=== PATIENT | female | born 1955 | race Caucasian/White ===

== ENCOUNTER 2017-10-03 09:04 | Emergency (ER) | payer BC ==
[2017-10-03 09:12] VITALS: BMI 25.0
--- NOTE | 2017-10-03 09:49 | PDOC ---
History of Present Illness - General Chief Complaint: Chest Pain Stated Complaint: CHEST PAIN Time Seen by Provider: 10/03/17 09:46 - History of Present Illness Initial Comments: 10/03/17 09:50 62 yo F with h/o hypothyoidism, seizure disorder, and asthma who presents with chest pain. Patient reports sharp, right sided chest pain with radiation to sternum beginning at approximately 0400 AM, waking her from her sleep. Pain was pleuritic worsening with deep inhalation and non positional. Pain started to subside at 0600 AM with increased severity 1 hour [employer] when driving to work. Pain now slightly improved at bedside. Reports episodic palpations with no acute exacerbation. Also endorsed 2 weeks of lightheadedness, but currently asymptomatic. Denies F/C, N/V, SOB, jaw /neck pain, cough, hemoptysis, leg swelling, ext sensory changes, weakness, abdominal pain, constipation, diarrhea , urinary complaints. Denies Tobacco use. Denies h/o PE/DVT. No recent traveling., or calf pain/tenderness/swelling. Denies surgery or trauma within past 6 weeks. Denies h/o malignancy. Denies OCP use or hormone therapy. Denies h /o CAD/LA, stent placement, CABG, or stress testing. Past History - Past Medical History Allergies/Adverse Reactions: Allergies Allergy/AdvReac Type Severity Reaction Status Date / Time morphine AdvReac Mild Nausea Verified 10/03/17 09:08 Home Medications: Ambulatory Orders Azithromycin 250 mg PO ONCE #5 tablet MDD 1 tab 10/03/17 Levothyroxine 150 mg PO DAILY 10/03/17 COPD: No Seizures: Yes (HYPO) Thyroid Disease: Yes - Surgical History Cholecystectomy: Yes - Immunization History Immunization Up to Date: Yes - Suicide/Smoking/Psychosocial Hx Smoking Status: No Smoking History: Never smoked Have you smoked in the past 12 months: No Number of Cigarettes Smoked Daily: 0 Information on smoking cessation initiated: No Hx Alcohol Use: No Drug/Substance Use Hx: No Substance Use Type: None Review of Systems - Review of Systems Comments:: 10/03/17 09:48 GENERAL/CONSTITUTIONAL: No fever or chills. No weakness. HEAD, EYES, EARS, NOSE AND THROAT: No change in vision. No ear pain or discharge. No sore throat.- CARDIOVASCULAR: No shortness of breath RESPIRATORY:+ Chest pain. No cough, wheezing, or hemoptysis. GASTROINTESTINAL: No nausea, vomiting, diarrhea or constipation. GENITOURINARY: No dysuria, frequency, or change in urination. MUSCULOSKELETAL: No joint or muscle swelling or pain. No neck or back pain. SKIN: No rash NEUROLOGIC: No headache, vertigo, loss of consciousness, or change in strength/ sensation. ENDOCRINE: No increased thirst. No abnormal weight change HEMATOLOGIC/LYMPHATIC: No anemia, easy bleeding, or history of blood clots. ALLERGIC/IMMUNOLOGIC: No hives or skin allergy. *Physical Exam - Vital Signs Last Vital Signs Temp Pulse Resp BP Pulse Ox 98.2 F 100 H 12 169/83 100 10/03/17 09:08 10/03/17 09:40 10/03/17 09:08 10/03/17 09:08 10/03/17 09:40 - Physical Exam Comments: 10/03/17 09:48 GENERAL: Awake, alert, and fully oriented, in no acute distress HEAD: No signs of trauma, normocephalic, atraumatic EYES: PERRLA, EOMI, sclera anicteric, conjunctiva clear ENT: Hearing grossly normal, nares patent, oropharynx clear without exudates. Moist mucosa NECK: Normal ROM, supple, no lymphadenopathy, JVD, or masses LUNGS: Exp rhonci R>L. Absent rales. No distress, speaks full sentences, clear to auscultation bilaterally HEART: Regular rate and rhythm, normal S1 and S2, no murmurs, rubs or gallops, peripheral pulses normal and equal bilaterally. EXTREMITIES : Normal inspection, Normal range of motion, no edema. No clubbing or cyanosis. SKIN: Warm, Dry, normal turgor, no rashes or lesions noted ED Treatment Course - LABORATORY CBC & Chemistry Diagram: 10/03/17 09:57 10/03/17 09:57 Medical Decision Making - Medical Decision Making 10/03/17 10:12 62 yo F with h/o hypothyoidism, seizure disorder, and asthma who presents with acute, sharp, pleuritic, right sided chest pain with radiation to sternum beginning at approximately 0400 AM, waking her from her sleep.+ episodic palpations 2 weeks of lightheadedness. Denies F/C, N/V, SOB, jaw /neck pain, cough, hemoptysis, leg swelling, ext sensory changes, weakness, abdominal pain, constipation, diarrhea, urinary complaints. Physical exam unremarkable, with non reproducible chest pain. Pulse 100. Will consider ACS/LA vs PNA in setting of left sided chest pain. Will also consider PE given pleuritic chest pain with lightheadedness, and tachycardia. Patient low risk PE based on weils criteria. ED Course: EKG: Absent ANTONIA, STD, or TWI. Normal interval duration, and normal axis. 10/03/17 10:49 CXR: Focal LLQ density as seen ( 11/22). CT imaging recommended. 10/03/17 14:07 CTA: No pulmonary embolism. Interval development of a small right sided wedge shaped pulmonary opacity at linguila. Azithromycin 500 mg PO. Azithromycin sent to pharmacy. Patient stable for discharge with return precuations. Advised to take Azithromycin as prescribed and f/u with outpatient provider. *DC/Admit/Observation/Transfer Diagnosis at time of Disposition: Pleuritic chest pain - Discharge Dispostion Condition at time of disposition: Stable Admit: No - Referrals Referrals: Blanca Duran [Primary Care Provider] - Jimy Pardo MD [Staff Physician] - - Patient Instructions Printed Discharge Instructions: DI for Atypical Chest Pain Additional Instructions: Please return to the emergency department with any new or worsening symptoms or concerns. Please follow up with primary care physician within the next 1 week. Please follow up with cardiology within one week. Please take Azithromycin daily for 4 days starting (10/04/17) - Post Discharge Activity - Attestations Physician Attestion: 10/03/17 12:24 I attest to the information provided in this note.
[2017-10-03 10:16] LABS: BASO % 0.5 % (0-2.0); EOS % 2.3 % (0-4.5); HEMATOCRIT 34.7 % (32.4-45.2); HEMOGLOBIN 11.6 GM/dL (10.7-15.3); LYMPH % 20.8 % (8-40); MCH 29.1 pg (25.7-33.7); MCHC 33.4 g/dl (32.0-36.0); MEAN CELL VOLUME 87.2 fl (80-96); MEAN PLT VOLUME 7.8 fl (7.5-11.1); MONO % 9.1 % (3.8-10.2); NEUT % 67.3 % (42.8-82.8); PLATELET COUNT 315 K/MM3 (134-434); RBC 3.98 M/mm3 (3.60-5.2); RDW 14.6 % (11.6-15.6)
[2017-10-03 10:26] LABS: INR 0.97 (0.82-1.09)
[2017-10-03 10:38] LABS: ALBUMIN 3.3 g/dl (3.4-5.0); ANION GAP 7 (8-16); BLOOD UREA NITROGEN 11 mg/dL (7-18); CHLORIDE 103 mmol/L (98-107); CO2 28 mmol/L (21-32); CREATININE 0.7 mg/dL (0.55-1.02); GLUCOSE,RANDOM 96 mg/dL (74-106); MAGNESIUM 2.1 mg/dL (1.8-2.4); POTASSIUM 3.9 mmol/L (3.5-5.1); SGOT/AST 13 U/L (15-37); SGPT/ALT 13 U/L (12-78); SODIUM 138 mmol/L (136-145)
[2017-10-03 10:39] LABS: BILIRUBIN,TOTAL 0.6 mg/dL (0.2-1.0); TOT PROT 7.1 g/dl (6.4-8.2)
[2017-10-03 10:41] LABS: ALK PHOS 76 U/L (45-117)
--- NOTE | 2017-10-03 12:10 | PDOC ---
Attending Attestation - Resident Resident Name: Ayan Zunigason - ED Attending Attestation I have performed the following: I have examined & evaluated the patient, The case was reviewed & discussed with the resident, I agree w/resident's findings & plan, Exceptions are as noted - HPI HPI: 10/03/17 12:07 62-year-old female presents with nonexertional and pleuritic left chest pain without cough/fever/chills. No PE risk factors, no history of similar pain. Has had pneumonia in the past. - Physicial Exam PE: 10/03/17 12:07 Afebrile, heart rate 100 Slightly decreased breath sounds in the left base with some end expiratory wheezing, otherwise good air entry without diffuse wheezing. No edema or calf tenderness - Medical Decision Making 10/03/17 12:08 Patient seen and evaluated with the resident. I agree with the overall evaluation, assessment, and management with the following summary of visit: 62-year-old female with left-sided pleuritic chest discomfort at rest, slight tachycardia. Question infectious, low risk for PE, atypical for ACS. No smoking history or constitutional sxs. Initial workup showed normal EKG Labs showed negative troponin, chest x-ray showed persistence/worsening of the previously noted left chest density, clinically correlating with the patient's symptoms location CTA to further evaluate lung density and to rule out PE Reassess 10/03/17 14:[address] chest no PE, + lingular infiltrate/atelectasis. Will treat with abx for pna, understands return criteria. Heart Score/ECG Review #1 ECG reviewed & interpreted by me at: 09:09 General ECG Interpretation: Sinus Rhythm, Normal Rate (77), Normal Intervals ( qtc 411), No acute ischemic changes (nonspecific T wave changes V4-6)
[2017-10-03 12:31] VITALS: TEMP 98.1
[2017-10-03] MEDS ORDERED: AZITHROMYCIN 500 MG TABLET PO ONE (14:10)
[2017-10-03] MEDS ORDERED: AZITHROMYCIN 500 MG TABLET ONE (14:33)
[2017-10-03 14:58] VITALS: BP 148/78; PULSE 76
--- NOTE | 2017-10-04 11:38 | EKG ---
Test Reason : Blood Pressure : / mmHG Vent. Rate : 077 BPM Atrial Rate : 077 BPM P-R Int : 142 ms QRS Dur : 074 ms QT Int : 364 ms P-R-T Axes : 043 022 021 degrees QTc Int : 411 ms NORMAL SINUS RHYTHM NONSPECIFIC T WAVE ABNORMALITY ABNORMAL ECG WHEN COMPARED WITH ECG OF 16-JAN-2012 13:25, NO SIGNIFICANT CHANGE WAS FOUND Confirmed by MD Andrade Daniel ([id number]) on 10/04/2017 11:37:47 AM Referred By: Confirmed By:Lyndon Andrade MD
== END 2017-10-03 14:58 | disposition home or self-care (01) ==
LOC: JER 09:04
DX: R07.89 Other chest pain (principal); E03.9 Hypothyroidism, unspecified; J45.909 Unspecified asthma, uncomplicated; G40.509 Epileptic seizures related to external causes, not intractable, without status epilepticus
CPT/HCPCS: 36415; 71046-TC-FY; 71275-TC; 80053; 82550; 83735; 84484; 85025; 85610; 93005; 93010; 99285-25